=== PATIENT | female | born 1945 | race African-American/Black ===

== ENCOUNTER 2019-12-31 07:13 | Outpatient (REF) | payer MEDICARE, OTHER, SELFPAY ==
--- NOTE | 2019-12-31 07:20 | MM_ITS ---
EXAMINATION: MM SCREENING DIGITAL BREAST TOMOSYNTHESIS, BILATERAL CLINICAL INFORMATION: Screening. Asymptomatic. Family history breast cancer (sister, postmenopausal). The lifetime risk of breast cancer based on the Tyrer-Cuzick Model is 3%. COMPARISON: Mammography: 12/24/2018, 11/28/2017 TECHNIQUE: Digital breast tomosynthesis is performed in both the craniocaudal and mediolateral oblique views along with computer-aided detection (CAD). Synthesized 2D images are generated from the tomosynthesis. FINDINGS: There are scattered areas of fibroglandular density (ACR BI-RADS breast composition Category b). There are no significant masses, abnormal calcifications, or other abnormalities. The axilla and skin contours are unremarkable. IMPRESSION: No mammographic evidence of malignancy. ASSESSMENT: BI-RADS 1: Negative RECOMMENDATION: Routine annual mammography screening. This patient's information was entered into a reminder system with a target due date for their next mammogram.
== END 2019-12-31 07:14 | disposition home or self-care (01) ==
LOC: HO.MAMMO 07:13
PROVIDERS: PCP Nurse Practitioner Family; Visit Provider Nurse Practitioner Family
DX: Z12.31 Encounter for screening mammogram for malignant neoplasm of breast (principal)
CPT/HCPCS: 77063; 77067

== ENCOUNTER 2020-03-17 13:40 | Outpatient (REF) | payer MEDICARE, MEDICAID, SELFPAY ==
--- NOTE | 2020-03-17 13:46 | US_ITS ---
EXAMINATION: US SOFT TISSUE HEAD AND NECK CLINICAL INFORMATION: Status post thyroidectomy. Neck pain. COMPARISON: None TECHNIQUE: Ultrasound imaging of the neck was performed for evaluation of lymph nodes. FINDINGS: Ultrasound imaging of the neck reveals no visible abnormal-sized right neck lymph nodes. There are a few scattered left neck lymph nodes as mentioned below. 1. 1B lymph node measuring 1.1 x 0.44 x 1.2 cm. It has normal echotexture. 2. Level 2 lymph node measuring 0.65 x 0.26 x 0.63 cm. It has normal echotexture. 3. Level 2 lymph node measuring 0.45 x 0.40 x 0.50 cm. There is normal echotexture. 4. Level 3 lymph node measuring 1.0 x 0.50 x 0.83 cm. There is normal echotexture. US/US soft tiss head and/or neck IMPRESSION: No abnormal lymph nodes in the right neck. There are 4 lymph nodes seen in the left neck measuring 1.1 cm and below and have normal echotexture. No abnormal neck lymph nodes seen in the left neck.
== END 2020-03-17 13:41 | disposition home or self-care (01) ==
LOC: HO.HMGCX 13:40
PROVIDERS: PCP Nurse Practitioner Family; Visit Provider Nurse Practitioner Family
DX: C73 Malignant neoplasm of thyroid gland (principal); M54.2 Cervicalgia
CPT/HCPCS: 76536

== ENCOUNTER 2020-05-28 08:45 | Outpatient (REF) | payer MEDICARE, MEDICAID, SELFPAY ==
--- NOTE | ~2020-05-28 | US_ITS ---
EXAMINATION: US ABDOMEN COMPLETE CLINICAL INFORMATION: Right upper quadrant pain. COMPARISON: CT abdomen and pelvis 03/23/2011 report only. TECHNIQUE: Real-time imaging of the abdominal viscera. FINDINGS: PANCREAS: Normal. ABDOMINAL AORTA: The proximal, mid, and distal segments are normal in caliber. INFERIOR VENA CAVA: Visualized portions are normal. LIVER: Normal. The liver is normal in size. The liver contour is normal. Parenchymal echogenicity is normal. No focal hepatic lesion. There is no intrahepatic biliary duct dilatation seen. GALLBLADDER: Surgically absent. COMMON BILE DUCT: Normal in caliber measuring 0.6 cm in diameter. RIGHT KIDNEY: There is a 3.7 cm cyst in the upper pole. No hydronephrosis or renal calculi. The kidney measures 9.3 cm in maximum dimension. LEFT KIDNEY: There is a 4 cm cyst in the midpole. No hydronephrosis or renal calculi. The kidney measures 9.7 cm in maximum dimension. SPLEEN: Normal. The spleen measures 8.6 cm in maximum dimension. FREE FLUID: None. US/US abdomen complete IMPRESSION: No acute abnormality. Bilateral benign renal cysts slightly larger than CT 2012
== END 2020-05-28 08:46 | disposition home or self-care (01) ==
LOC: HO.HMGCX 08:45
PROVIDERS: PCP Family Medicine; Visit Provider Family Medicine
DX: R10.11 Right upper quadrant pain (principal)
CPT/HCPCS: 76700